=== PATIENT | male | born 1955 | race Caucasian/White ===

== ENCOUNTER → 2019-03-14 10:23 | Outpatient (CLI) | payer MEDICARE, SELFPAY ==
[2019-03-14 10:57] LABS: International Normalized Ratio 2.4
== END ==
PROVIDERS: Family Provider Physician Assistant; PCP Physician Assistant; Referring Provider Internal Medicine; Visit Provider Internal Medicine
DX: Z95.2 Presence of prosthetic heart valve (principal)
CPT/HCPCS: 85610

== ENCOUNTER → 2019-03-28 13:49 | Outpatient (CLI) | payer MEDICARE, SELFPAY ==
[2019-03-28 14:27] LABS: Prothrombin Time (Protime)PT. 37.8 SECONDS (11.7-14.9)
[2019-03-28 15:02] LABS: International Normalized Ratio 3.8
== END ==
PROVIDERS: Family Provider Physician Assistant; PCP Physician Assistant; Referring Provider Internal Medicine; Visit Provider Internal Medicine
DX: Z95.2 Presence of prosthetic heart valve (principal)
CPT/HCPCS: 85610

== ENCOUNTER 2020-03-13 06:48 | Emergency (ER) | payer OTHER, SELFPAY ==
[2020-03-13 06:50] VITALS: BP 136/70; PULSE 78; RESP 16; TEMP 36.8; O2SAT 96; BMI 28.5
--- NOTE | 2020-03-13 07:02 | ED.VIS.GEN ---
History of Present Illness Chief Complaint: Laceration Informant: Patient Narrative: 65-year-old male presents from local restaurant where he cut his right pinky with a small knife. States that the cut is not very deep however he was bleeding given he is on blood thinners. Denies any sensory changes. Patient also spilled oil onto his pants however states that he has no burning of his lower extremities. Past Medical History - Allergies and Home Meds Allergies/Adverse Reactions: Allergies No Known Allergies Allergy (Verified 03/13/20 06:54) Primary Care Physician: Belkys Domingo MD [Primary Care Provider] - Prior records reviewed: Yes Past Medical History: - - COPD and MVR Surgical History: - - Open heart surgery, Lives: Alone Smoking Status: Current every day smoker Alcohol: None Drugs: None - Family History Maternal Family History: Reports: No pertinent history Review of Systems General: Denies: Chills, Fever, Sweats Eyes: Denies: Visual changes - bilaterally, Diplopia ENT: Denies: Rhinorrhea, Sore throat Cardiovascular: Denies: Chest pain, Palpitations Respiratory: Denies: Dyspnea, Cough, Dyspnea on exertion Gastrointestinal: Denies: Abdominal pain, Nausea, Vomiting, Diarrhea, Melena, Hematochezia Genitourinary: Denies: Dysuria, Hematuria, Frequency Musculoskeletal: Denies: Back pain, Extremity Pain Skin: Reports: Wounds. Denies: Rash Neurological: Denies: Headache, Weakness, Numbness Physical Exam Vital Signs/Narrative: Vital Signs Temp Pulse Resp BP Pulse Ox 03/13/20 06:50 98.3 F 78 16 136/70 H 96 Inital Vital Signs reviewed: Yes General: Well nourished, Well developed, No Acute Distress Head: Normocephalic, Atraumatic ENT: Moist mucous membranes Neck: Supple, Nontender Cardiovascular: Regular rate, Regular rhythm, No murmurs Respiratory: No distress, CTA bilaterally, Chest nontender Abdomen: Soft, Nontender, Nondistended Back: Nontender Extremities: Nontender, No edema Skin: Normal color, No rash, - - 0.5 cm laceration to the dorsal aspect of the right 5th digit. venous oozing. Neurological: Alert, Oriented x3, Normal Strength, Normal Sensation Psychological: Normal affect, Normal Mood Diagnostic/Tx/Re-eval - Medical Decision Making Patient appears well nontoxic. Vital signs within normal limits. Superficial laceration to the right fifth digit. Direct pressure was held to stop venous oozing. Tetanus updated. Tissue adhesive placed to repair laceration. Asked to return for drainage or increasing pain. Discharged home in stable condition. Diagnosis: 1. right fifth digit laceration: Repaired with tissue adhesive 2. Tetanus update ED Disposition - Plan for ED Patient: Disposition: Home or Assisted Living Instructions: ED Laceration Ext Skin Glue Referrals: Belkys Domingo MD [Primary Care Provider] -
[2020-03-13] MEDS: Diphth,Pertuss(Acell),Tet Vac 0.5 ML Vial IM (07:21)
--- NOTE | 2020-03-13 07:22 | ED.RN ---
PT STATES CLAIMING WORKER'S COMPENSATION FOR INJURY. FIRST REPORT OF INJURY GIVEN TO PT AND COMPLETED. PT ADVISED TO REPORT TO NOW CLINIC FOR DRUG TESTING AFTER DISCHARGE.
== END 2020-03-13 07:43 | disposition home or self-care (01) ==
LOC: ED 07:20
PROVIDERS: Emergency Provider Emergency Medicine; PCP Internal Medicine
DX: S61.216A Laceration without foreign body of right little finger without damage to nail, initial encounter (principal); W26.0XXA Contact with knife, initial encounter; Y93.9 Activity, unspecified; Y92.511 Restaurant or cafe as the place of occurrence of the external cause; Y99.0 Civilian activity done for income or pay; J44.9 Chronic obstructive pulmonary disease, unspecified; F17.200 Nicotine dependence, unspecified, uncomplicated; Z79.01 Long term (current) use of anticoagulants
CPT/HCPCS: 12001; 90471; 90715; 99282